=== PATIENT | female | born 1975 | race Caucasian/White ===

== ENCOUNTER 2020-01-02 11:31 | Emergency (ER) | payer OTHER, SELFPAY ==
[2020-01-02 11:35] VITALS: BP 121/89; PULSE 95; RESP 18; TEMP 36.6; O2SAT 98
[2020-01-02 11:53] VITALS: O2SAT 97
[2020-01-02 12:00] VITALS: O2SAT 100
[2020-01-02 12:01] VITALS: BP 115/84; O2SAT 100
--- NOTE | 2020-01-02 12:08 | ED.GENADULT ---
HPI - General Adult General Chief complaint: Wound/Laceration Stated complaint: laceration on right foot Time Seen by Provider: 01/02/20 11:49 Source: patient Mode of arrival: ambulatory Limitations: no limitations History of Present Illness HPI narrative: 44-year-old female patient presents to the [facility] with complaints of a laceration to her right foot. Patient states that she was cutting some tomatoes today and states that she excellently dropped her knife and it cut her foot. Denies any history of diabetes, neuropathy or being on blood thinners. Patient states that her last tetanus shot was about 7 years ago. Patient states she was having a little trouble trying to get the bleeding to stop. Patient denies any numbness or tingling to the feet. Denies any trouble moving the foot or toes. Related Data Home Medications Medication Instructions Recorded Confirmed clobetasol 1 applic TOPICAL BID 08/05/19 08/05/19 cholecalciferol (vitamin D3) 125 125 mcg PO DAILY 12/09/19 mcg (5,000 unit) capsule ustekinumab 130 mg/26 mL 260 mg IVPB ONCE 12/09/19 12/09/19 intravenous solution Allergies Allergy/AdvReac Type Severity Reaction Status Date / Time meperidine Allergy Unknown Rash Verified 01/02/20 11:35 Review of Systems Review of Systems: Narrative: CONSTITUTIONAL: Denies fever, chills, or sweats. EYES: Denies visual changes, redness, or discharge. ENT: Denies rhinorrhea, congestion, sore throat, or otalgia. CARDIOVASCULAR: Denies chest pain, palpitations, or edema. RESPIRATORY: Denies cough or dyspnea. GASTROINTESTINAL: Denies abdominal pain, nausea, vomiting, or diarrhea. GENITOURINARY: Denies dysuria or hematuria. SKIN: Denies rash or itching. Positive laceration to right foot MUSCULOSKELETAL: Denies back pain, joint pain, or myalgia. NEUROLOGIC: Denies headache, numbness, or weakness. PSYCHIATRIC: Denies anxiety or depression. [facility] Family History Family History Father Family history of chronic obstructive pulmonary disease Family history of Alzheimer's disease Family history of dementia Mother Uterine cancer Sibling High blood cholesterol Grandparent Cerebrovascular accident Grandparent Cerebrovascular accident Grandparent Lung cancer Social History Social History Smoking status: Former smoker Smoking end date: 07/24/07 Alcohol intake: current Substance use: current Substance use type: marijuana and prescription drug Other substance usage details: Medical Marijuana Gender identity (if verbalized by the patient): Female Comments At the time of my signature I agree with nursing past medical history, surgical, social, and family history. There is no relevant family history pertinent to the presenting complaint. Exam Narrative: Exam Narrative: GENERAL: Well-appearing, well-nourished, and in no acute distress. HEAD: Normocephalic, atraumatic. EYES: PERRLA and EOMI. ENT: Nares clear, no rhinorrhea or epistaxis. Mucous membranes moist. NECK: Supple. No lymphadenopathy CHEST: Clear to auscultation. No respiratory distress. HEART: Regular rate and rhythm. No murmur heard. Normal peripheral pulses. ABDOMEN: Soft, nontender, nondistended, normal active bowel sounds. EXTREMITIES: Normal range of motion. No edema. SKIN: Warm, dry, no rash. Patient has approximately 2.5 cm linear laceration to the top of the right foot. Bleeding is controlled at this time. There is no gaping of the wound and the wound does appear to be pretty superficial. There does not appear to be any underlying injury at this time. Patient has excellent motion of toes and has equal strength to feet. Pedal pulses intact at 2+. NEURO: No focal deficits. Alert and oriented x3. Course Vital Signs Vital signs: Vital Signs Temperature 36.6 C 01/02/20 11:35 P
[2020-01-02 12:16] VITALS: BP 115/79; O2SAT 96
[2020-01-02] MEDS: ACETAMINOPHEN 325 MG TABLET 650 MG PO (12:16)
[2020-01-02 12:17] VITALS: O2SAT 97
[2020-01-02] MEDS: TETANUS,DIPHTHERIA,AC PERTUSSIS ADULT (0.5 ML) BOOSTRIX IM (12:18)
== END 2020-01-02 12:46 | disposition home or self-care (01) ==
PROVIDERS: Emergency Provider Nurse Practitioner Family; PCP Family Medicine
DX: S91.311A Laceration without foreign body, right foot, initial encounter (principal); Z87.891 Personal history of nicotine dependence; W26.0XXA Contact with knife, initial encounter; Y93.G1 Activity, food preparation and clean up; Z23 Encounter for immunization
CPT/HCPCS: 12001; 90471; 90715; 99282; A9270

== ENCOUNTER 2020-01-28 08:57 | Outpatient (CLI) | payer OTHER, SELFPAY | END 2020-01-28 08:58 | disposition home or self-care (01) | PROVIDERS: PCP Family Medicine; Visit Provider Obstetrics & Gynecology | DX: Z01.818 Encounter for other preprocedural examination (principal); R10.2 Pelvic and perineal pain | CPT/HCPCS: 36415; 86850; 86900; 86901 ==

== ENCOUNTER 2020-02-01 01:17 | Outpatient (CLI) | payer OTHER, SELFPAY ==
[2020-02-01 18:09] LABS: SARS-CoV-2 RNA PCR Negative
== END 2020-02-01 01:18 | disposition home or self-care (01) ==
LOC: ANHCOVIDDT 01:17
PROVIDERS: PCP Family Medicine; Visit Provider Obstetrics & Gynecology
DX: Z01.812 Encounter for preprocedural laboratory examination (principal); Z11.59 Encounter for screening for other viral diseases
CPT/HCPCS: 87635; C9803; U0003

== ENCOUNTER 2020-02-04 02:39 | Day surgery (SDC) | payer OTHER, SELFPAY ==
[2020-01-27 14:18] VITALS: BMI 25.8
[2020-02-04] VITALS (14 sets, daily range): BP systolic 91–120; BP diastolic 57–83; PULSE 59–90; RESP 10–18; TEMP 36.1–36.8; O2SAT 96–100
--- NOTE | ~2020-02-04 | CT_ITS ---
EXAMINATION: CT abdomen pelvis wo con DATE: 02/05/2020 09:16 INDICATION: Lower abdominal pain post recent hysterectomy TECHNIQUE: Computed tomography (CT) of the abdomen and pelvis was performed without intravenous contr ast. Automated exposure control and iterative reconstruction technique were employed. The dose-length product was 535.04 mGy-cm. COMPARISON: None FINDINGS: There are a few 4 mm or smaller nodules at the bilateral lower lobes. Mild discoid atelectasis in the bilateral lower lobes. Heart size is normal. No pericardial or pleural effusion. The uterus is not v isualized and there is a small amount of pneumoperitoneum as well as more prominent scattered subcuta neous gas along the anterior abdominal wall likely related to recent laparoscopic hysterectomy. There is an approximately 12.4 x 8.8 x 7.8 cm mixed attenuation fluid collection in the deep pelvis consis tent with hemoperitoneum with regions of more dense clot. Small amount of lower attenuation perihepat ic ascites. Bladder is normal. Liver, gallbladder, spleen, pancreas, bilateral adrenal glands and kid neys are normal. There are 3 small splenule along the caudal margin of the spleen. Mild scattered col onic diverticulosis without adjacent inflammatory change to suggest diverticulitis. No bowel obstruct ion. No pathologically enlarged abdominal or pelvic lymphadenopathy. Multiple small Schmorl's nodes a long several vertebral bodies in the lumbar and lower thoracic spine. IMPRESSION: 1. Postoperative changes of recent laparoscopic hysterectomy with approximately 12.4 x 8.8 x 7.8 cm c ollection of hemoperitoneum in the deep pelvis. Reviewed, dictated and finalized at location A. IMPRESSION: 1. Postoperative changes of recent laparoscopic hysterectomy with approximately 12.4 x 8.8 x 7.8 cm collection of hemoperitoneum in the deep pelvis.
--- NOTE | 2020-02-04 00:53 | PM.IMHP ---
H&P: HPI History of Present Illness Chief complaint: pain, enlarged uterus Narrative: 44 y/o with a fibroid uterus, pelvic pain, and a right adnexal mass suggestive of hydrosalpinx. She has had a tubal ligation. She is requesting hysterectomy. Review of Systems Review of Systems: All systems reviewed & are unremarkable except as noted in HPI and below PMFSH Past Medical History Medical History (Updated 02/04/20 @ 01:02 by Fortino Stokes MD) Common migraine Crohn's disease of small intestine without complication Eczema History of basal cell carcinoma of skin Uterine fibroid Family History Family History Father Family history of chronic obstructive pulmonary disease Family history of Alzheimer's disease Family history of dementia Mother Uterine cancer Sibling High blood cholesterol Grandparent Cerebrovascular accident Grandparent Cerebrovascular accident Grandparent Lung cancer Social History Social History Smoking packs per day: 1 Smoking cigarettes per day: 20.0 Years smoked: 10 Smoking pack-years: 10.00 Smoking status: Former smoker Smoking end date: 07/24/07 Additional smoking assessment comments: QUIT 10 YEARS AGO Alcohol intake: current Drinks per week: 4 Substance use: current Substance use type: marijuana Other substance usage details: Medical Marijuana Last use: FEW WEEKS AGO Gender identity (if verbalized by the patient): Female Spiritual care concerns: No Meds Home Medications and Allergies Home Medications Medication Instructions Recorded Confirmed Type clobetasol 1 applic TOPICAL BID PRN 08/05/19 02/04/20 History cholecalciferol (vitamin D3) 125 125 mcg PO DAILY 12/09/19 02/04/20 History mcg (5,000 unit) capsule ustekinumab 130 mg/26 mL 260 mg IVPB USEASDIRECTD 12/09/19 02/04/20 History intravenous solution alprazolam 0.25 mg tablet 0.25 mg PO TID PRN #90 tablet 01/27/20 02/04/20 Rx cetirizine 10 mg PO DAILY PRN 01/27/20 02/04/20 History chlordiazepoxide HCl 10 mg PO Q12H 01/27/20 02/04/20 History triamcinolone acetonide 1 applic TOPICAL DIRECTED PRN 01/27/20 02/04/20 History amitriptyline 25 mg tablet 75 mg PO .COMPLEX #270 tablet 01/31/20 02/04/20 Rx Allergies Allergy/AdvReac Type Severity Reaction Status Date / Time meperidine Allergy Unknown Rash, Verified 02/04/20 12:23 VOMITING, SYNCOPE Exam Const: Orientation/consciousness: patient oriented x3 Other: Well-developed, well-nourished female in no acute distress. Neck: Thyroid: thyroid normal Lymphatic: no lymphadenopathy noted (in neck, axilla or inguinal nodes) Resp: Effort & Inspection: normal respiratory effort Auscultation: clear to auscultation bilaterally Cardio: Rate: regular rate Rhythm: regular rhythm Heart sounds: S1 normal heart sound present and S2 normal heart sound present GI: Other: ABD: Soft, nontender, nondistended. No guarding or rebound tenderness. No hepatosplenomegaly. : General: Yes no CVA tenderness Other: External genitalia: normal female hair distribution, without lesion. Urethral meatus: no lesion, non prolapsed. Bladder: no mass, nontender Vagina: well-estrogenized, without lesion or discharge. No cystocele or rectocele. Cervix: no lesion or discharge. Uterus: small, anteverted, freely mobile, nontender Adnexa: no mass palpable. But there is tenderness to deep palpation bilaterally. Anus/perineum: no lesions, nontender Back/Spine/Pelvis: Back: no CVA tenderness Skin: General skin exam: normal color and no rashes or lesions noted Neuro: General: patient oriented x3 Extrem: Other: Extremities: nontender with no edema Psych: Mental Status: mental status grossly normal Affect: normal affect Assessment and Plan Assessment and plan (1) Uterine fibroid:
--- NOTE | 2020-02-04 11:30 | WPDANESEPPF ---
Anes - Initial Pre Proc Eval Procedure: Operation Date: 02/04/20 13:00 Proposed Procedures p Robotic Assisted Total Vaginal Hysterectomy, Bilateral Salpingo-oophorectomy - Fortino Stokes MD Date/Time: 02/04/20 11:30 Surgeon: Fortino Stokes MD Pre Op Diagnosis: pain, enlarged uterus Patient Data Age: 44 Gender: F Height: 5 ft 8 in Weight: 77.11 kg Allergies Allergy/AdvReac Type Severity Reaction Status Date / Time meperidine Allergy Unknown Rash, Verified 01/31/20 09:53 VOMITING, SYNCOPE Home Medications Medication Instructions Recorded Confirmed Type clobetasol 1 applic TOPICAL BID PRN 08/05/19 01/27/20 History cholecalciferol (vitamin D3) 125 125 mcg PO DAILY 12/09/19 01/27/20 History mcg (5,000 unit) capsule ustekinumab 130 mg/26 mL 260 mg IVPB USEASDIRECTD 12/09/19 01/27/20 History intravenous solution alprazolam 0.25 mg tablet 0.25 mg PO TID PRN #90 tablet 01/27/20 01/27/20 Rx cetirizine 10 mg PO DAILY PRN 01/27/20 01/27/20 History chlordiazepoxide HCl 10 mg PO Q12H 01/27/20 01/27/20 History triamcinolone acetonide 1 applic TOPICAL DIRECTED PRN 01/27/20 01/27/20 History amitriptyline 25 mg tablet 75 mg PO .COMPLEX #270 tablet 01/31/20 01/31/20 Rx Patient hx anesthesia problems: none Family hx anesthesia problems: none PMFSH Past Medical History Medical History (Updated 02/04/20 @ 01:02 by Fortino Stokes MD) Common migraine Crohn's disease of small intestine without complication Eczema History of basal cell carcinoma of skin Uterine fibroid Family History Family History Father Family history of chronic obstructive pulmonary disease Family history of Alzheimer's disease Family history of dementia Mother Uterine cancer Sibling High blood cholesterol Grandparent Cerebrovascular accident Grandparent Cerebrovascular accident Grandparent Lung cancer Social History Social History Smoking packs per day: 1 Smoking cigarettes per day: 20.0 Years smoked: 10 Smoking pack-years: 10.00 Smoking status: Former smoker Smoking end date: 07/24/07 Additional smoking assessment comments: QUIT 10 YEARS AGO Alcohol intake: current Drinks per week: 4 Substance use: current Substance use type: marijuana Other substance usage details: Medical Marijuana Last use: FEW WEEKS AGO Gender identity (if verbalized by the patient): Female Spiritual care concerns: No Anes - Eval Final PreProcedure Day of Procedure 02/04/20 11:30 Patient weight: normal Heart: regular rate and rhythm Lungs: clear to auscultation Airway: Mallampati scale class II Neurological: alert and oriented Last oral intake: >/= 8 hours ASA classification: II Emergent: no Anesthetic plan: proceed Anesthesia type and monitoring: general ETT and standard monitoring Informed Consent: The patient's anesthetic plan and its attendant risks and benefits were discussed with the patient/family/POA. Questions were solicited and answers provided to the satisfaction of the patient/family/POA.
[2020-02-04] MEDS: LACTATED RINGERS 1,000 ML 30 ML IV CONT ×2 (12:00→15:25)
[2020-02-04] MEDS: ACETAMINOPHEN 500 MG TABLET 1000 MG PO (12:28)
[2020-02-04] MEDS: KETOROLAC 15 MG/ML VIAL (*BKC) IV PUSH (12:28)
--- NOTE | 2020-02-04 12:32 | WPDHPUPDATE1 ---
History and Physical Update Update Date/Time: 02/04/20 12:32 History and Physical has been reviewed, including an updated exam of the patient. There are NO changes in the patient's condition. Risks, benefits, and alternatives have been discussed and questions answered. Patient agrees to proceed with procedure.
--- NOTE | 2020-02-04 15:05 | SUR.OPER ---
Ebl=50ml
--- NOTE | 2020-02-04 16:30 | SUR.PHASEI ---
1630 SBAR FAXED FLOOR NOTIIFED
--- NOTE | 2020-02-04 17:10 | PM.PROC ---
Procedure Note - Detailed Date of procedure: 02/04/20 Pre-op diagnosis: pain, enlarged uterus Pelvic pain Hydrosalpinx Fibroid uterus Post-op diagnosis: same Procedure performed: Robotic assisted TVH with bilateral salpingooophorectomy Description of procedure: The patient was taken to the operating room where general endotracheal anesthesia was administered. She was prepared and draped in the usual sterile fashion in the dorsal lithotomy position. A Adrian catheter was placed. The weighted sterile speculum was placed in the vagina. The anterior lip of the cervix was grasped with a single-tooth tenaculum. The cervix was gently dilated. The CARRILLO 2 uterine manipulator was placed. The tenaculum was removed. Gloves were changed and attention was turned to the abdomen. A supraumbilical skin incision was made with the scalpel. The abdomen was tented and the Veress needle was advanced. Pneumoperitoneum was administered using carbon dioxide gas. The Veress needle was withdrawn and the bladeless trocar was advanced. Intraperitoneal placement was confirmed visually using the laparoscope. Lateral ports were placed using bladeless trocars under direct laparoscopic visualization. Finally, an music assistant port was placed to the right of the camera port, again under direct laparoscopic visualization. The patient was placed in Trendelenburg position and the patient cart was docked. I assumed the console. The ureters were identified bilaterally. The round ligament on the right was divided. The infundibulopelvic ligament was divided. The anterior and posterior leaves of the broad ligament were divided. The uterine artery was ligated on the right side. Attention was then turned to the left side, which was similarly dissected. The bladder was able to be fully reflected away. Colpotomy was performed circumferentially. The specimen was withdrawn and passed off to be sent to pathology. The vaginal cuff was then reapproximated using 0 Vicryl in interrupted [id number] fashion. The pelvis was irrigated copiously with warmed normal saline. Hemaderm was applied to the vaginal cuff. The pedicles were inspected and found to be hemostatic. The ports were withdrawn. The skin incisions were reapproximated using 4-0 Vicryl in interrupted subcuticular fashion. Dermaflex was applied externally. Sponge, lap, needle and instrument counts were correct. The patient was awakened and taken to the recovery room in stable condition. I was present and scrubbed through the entire procedure. Implants: None Anesthesia: GETA Surgeon: Fortino Stokes MD Estimated blood loss (mL): 50 Drains: No Packing: No Pathology: yes (Uterus, cervix, bilateral Fallopian tubes and ovaries) Complications: None Condition: stable Disposition: PACU Findings: Adhesions were noted between the omentum and the anterior abdominal wall. Adhesions were also noted at the bladder flap. Both Fallopian tubes demonstrated some dilation, as well as evidence of prior tubal ligation. Both ovaries were unremarkable.
--- NOTE | 2020-02-04 17:15 | PM.DS ---
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 F, increased abdominal pain, increased vaginal bleeding or any new problems. Stand Alone Forms: General Discharge Instructions Follow-up/Referrals: Fortino Stokes MD [Physician] - (2 weeks) Discharge Medications: No Action clobetasol 0.05 % Cream 1 applic TOPICAL BID PRN (Reason: Rash) RF: 0 cholecalciferol (vitamin D3) 125 mcg (5,000 unit) capsule 125 mcg PO DAILY RF: 0 Stelara 130 mg/26 mL solution 260 mg IVPB USEASDIRECTD RF: 0 amitriptyline 25 mg tablet 75 mg PO .COMPLEX Qty: 270 RF: 1 triamcinolone acetonide 0.1 % Cream 1 applic TOPICAL DIRECTED PRN (Reason: Rash) RF: 0 chlordiazepoxide HCl 5 mg capsule 10 mg PO Q12H RF: 0 cetirizine 10 mg capsule 10 mg PO DAILY PRN (Reason: Rash) RF: 0 alprazolam 0.25 mg tablet 0.25 mg PO TID PRN (Reason: anxiety) Qty: 90 RF: 1 Primary Care Provider: Heriberto Gomez Attending physician on admission: Fortino Stokes
[2020-02-04] MEDS: DEXTROSE 5%/0.45% SOD CHL 1,000 ML 125 ML IV CONT (17:21)
[2020-02-04] MEDS: MORPHINE SULFATE 4 MG/ML INJ IV PUSH ×2 (17:22→21:33)
--- NOTE | 2020-02-04 18:37 | PC.NURSE ---
This patient, Carline Juáerz, was received from PACU on 02/04/20 at 1652. Patient/family oriented to unit policies and routines
[2020-02-04] MEDS: ENOXAPARIN 40 MG/0.4 ML SYRINGE SUB-Q (19:50)
[2020-02-04] MEDS: ESTRADIOL 7 DAY 0.05 MG PATCH TRANSDERM (19:50)
[2020-02-04] MEDS: AMITRIPTYLINE HCL 25 MG TABLET 50 MG PO (19:51)
[2020-02-05] VITALS (15 sets, daily range): BP systolic 88–116; BP diastolic 21–79; PULSE 64–97; RESP 16–18; TEMP 36.2–37.2; O2SAT 96–100
[2020-02-05] MEDS: DEXTROSE 5%/0.45% SOD CHL 1,000 ML 125 ML IV CONT ×2 (01:36→09:47)
[2020-02-05 06:19] LABS: Basophils Percent Auto 0.3 % (0.2-1.2); Eosinophils Absolute Auto 0.1 K/mm3 (0-0.3); Hemoglobin 11.2 g/dL (12.0-15.0); Immature Granulocyte Absolute 0.02 K/mm3 (0.00-0.031); Immature Granulocyte Percent A 0.3 % (0-0.5); Lymphocytes Absolute Auto 1.13 K/mm3 (0.9-3.2); Lymphocytes Percent Auto 18.8 % (18.3-44.2); Mean Corpuscular HGB Conc 32.9 g/dl (32-36); Mean Corpuscular Hemoglobin 31.4 pg (26-34); Mean Corpuscular Volume 95.2 fl (80-100); Mean Platelet Volume 9.1 fl (7.4-10.4); Monocytes Absolute Auto 0.4 K/mm3 (0.1-0.6); Monocytes Percent Auto 6.5 % (2.6-8.5); Neutrophils Absolute Auto 4.4 K/mm3 (1.3-6.7); Neutrophils Percent Auto 73.1 % (45.5-73.1); Platelet Count Result 190 k/mm3 (150-375); Red Blood Count 3.57 M/mm3 (4.2-5.4); Red Cell Distribution Width 12.9 % (11.5-14.5)
--- NOTE | 2020-02-05 07:27 | P.PNAN_ITS ---
Anes - Prog Note Post-Op Date/Time: 02/05/20 07:27 Cardiovascular status: normal Respiratory status: normal Airway patency: baseline Mental status: baseline Post-Op hydration status: normal Vital Signs: Last Vital Signs Temp 36.2 C L 02/05/20 00:00 Pulse 73 02/05/20 00:00 Resp 16 02/05/20 00:00 BP 102/64 02/05/20 00:00 Pulse Ox 96 02/05/20 00:00 I/O: Intake & Output 02/04/20 02/04/20 02/05/20 15:59 23:59 07:59 Intake Total 0 1500 Output Total 60 Balance 0 -60 1500 Laboratory Tests 02/05/20 05:45 02/05/20 05:45 WBC 6.0 RBC 3.57 L Hgb 11.2 L Hct 34.0 L MCV 95.2 MCH 31.4 MCHC 32.9 RDW 12.9 Plt Count 190 MPV 9.1 Immature Gran % (Auto) 0.3 Neut % (Auto) 73.1 Lymph % (Auto) 18.8 Stewart % (Auto) 6.5 Eos % (Auto) 1.0 Baso % (Auto) 0.3 Lymph # (Auto) 1.13 Stewart # (Auto) 0.4 Eos # (Auto) 0.1 Baso # (Auto) 0.0 Abs Immat Gran (auto) 0.02 Absolute Neuts (auto) 4.4 Absolute Nucleated RBC 0.0 Nucleated RBC % 0.0 Post-procedural complaints: none Patient Feedback: Patient satisfied with anesthetic care.
[2020-02-05 08:16] LABS: Glucose Point of Care 146 (65-105)
--- NOTE | 2020-02-05 08:35 | PC.NURSE ---
Pt. became lightedheaded when up to chair. Assistance called for and patient fainted. Pt. began to respond to sternal rub and ammonia. Pt. pale and needed continual stimuli to remain responsive. Vitals 94/67. pulse 94. O2 100% which is consistant with previous vital signs. O2 applied and patient returned to bed. Glucose 146. Dr. Stokes notified.
[2020-02-05] MEDS: MORPHINE SULFATE 4 MG/ML INJ IV PUSH ×2 (10:01→14:12)
[2020-02-05] MEDS: SIMETHICONE 80 MG TAB.CHEW PO ×2 (10:03→16:15)
[2020-02-05 11:03] LABS: Mean Corpuscular HGB Conc 33.3 g/dl (32-36); Mean Corpuscular Hemoglobin 31.6 pg (26-34); Mean Corpuscular Volume 94.8 fl (80-100); Mean Platelet Volume 9.2 fl (7.4-10.4); Platelet Count Result 181 k/mm3 (150-375); Red Blood Count 3.48 M/mm3 (4.2-5.4); Red Cell Distribution Width 13.2 % (11.5-14.5); White Blood Count 7.8 K/mm3 (4.5-10.0)
--- NOTE | 2020-02-05 11:09 | PC.NURSE ---
Pt. off unit for CT.
--- NOTE | 2020-02-05 15:33 | PM.GYNPNOP ---
JUNIOR SOFTWARE ENGINEER - A/P Assessment and plan (1) Pelvic pain: Code(s): R10.2 - Pelvic and perineal pain Status: Acute Assessment and Plan: S/p robotic assisted TVHBSO, now clinically doing well. Syncopal episode today, but now resolved. Vital signs normal and stable, and exam is benign. Plan home to f/u 2 weeks. Instructions / precautions reviewed in detail. (2) Uterine fibroid: Code(s): D25.9 - Leiomyoma of uterus, unspecified Status: Acute (3) Hydrosalpinx: Code(s): N70.11 - Chronic salpingitis Status: Acute Postoperative Procedures: Procedures Operation Date: 02/04/20 13:00 Actual Procedures Side Surgeon p Robotic Assisted Total Vaginal Hysterectomy, Bilateral Salpingo-oophorectomy Fortino Stokes MD Time Spent With Patient Time with patient: 15 - 25 minutes JUNIOR SOFTWARE ENGINEER- PN:Subj Post-Op Subjective Date/time seen: 02/05/20 15:33 Interval history: Overnight her pain was just fine. Adrian had 1600mL when it was removed at 0700. She was sitting in her chair when she got some low abdominal pain, then had a syncopal episode. Was revived. Did not fall, was just sitting in the chair. I was called and saw her about 0845. She was lucid, denied any loss of bowel/bladder, denied any postictal symtpoms. Said she just had some low pelvic cramping. BP stable at 90s/60s, with pulse in 70s. Abdomen was soft and incisions c/d/i. No vaginal bleeding. Was sent for CT, which showed a [id number] collection of likely blood in the pelvis. A STAT hgb showed no change at 11. I asked her to stay until this afternoon. She currently feels fine, though crampy in the lower abdomen. Voided. No more syncopal or presyncopal episodes. Would like to try something else for pain and hopefully go home later today. Exam Narrative: Exam Narrative: AVSS I/O OK ABD soft, nontender. Incisions c/d/i. EXT nontender JUNIOR SOFTWARE ENGINEER - PN: Obj Data Vital Signs Vital Signs: Vital Signs - 24 hr 02/04/20 15:45 02/04/20 16:00 02/04/20 16:15 Temperature Pulse Rate 85 72 72 Respiratory Rate 12 10 L 14 Blood Pressure 111/72 98/57 L 104/65 Pulse Oximetry 100 100 98 02/04/20 16:30 02/04/20 16:47 02/04/20 17:00 Temperature 36.4 C Pulse Rate 59 L 76 75 Respiratory Rate 12 16 18 Blood Pressure 106/69 99/67 L 91/58 L Pulse Oximetry 99 96 100 02/04/20 17:15 02/04/20 17:30 02/04/20 17:45 Temperature Pulse Rate 79 87 76 Respiratory Rate 18 16 18 Blood Pressure 105/67 102/68 109/74 Pulse Oximetry 100 99 96 02/04/20 18:00 02/04/20 18:30 02/04/20 20:25 Temperature 36.1 C L Pulse Rate 68 90 Respiratory Rate 18 18 16 Blood Pressure 100/64 97/66 L 110/74 Pulse Oximetry 99 97 99 02/05/20 00:00 02/05/20 08:00 02/05/20 08:05 Temperature 36.2 C L 36.9 C Pulse Rate 73 97 94 Respiratory Rate 16 16 Blood Pressure 102/64 92/62 L 94/67 L Pulse Oximetry 96 98 100 02/05/20 08:12 02/05/20 08:15 02/05/20 08:20 Temperature Pulse Rate 88 77 79 Respiratory Rate Blood Pressure 88/58 L 89/41 L 97/67 L Pulse Oximetry 100 100 100 02/05/20 08:25 02/05/20 08:30 02/05/20 08:35 Temperature Pulse Rate 77 70 65 Respiratory Rate Blood Pressure 116/64 97/21 L 99/63 L Pulse Oximetry 100 100 100 02/05/20 08:40 02/05/20 08:45 02/05/20 08:50 Temperature Pulse Rate 65 64 65 Respiratory Rate Blood Pressure 93/62 L 96/64 L 104/75 Pulse Oximetry 100 100 100 02/05/20 09:45 02/05/20 12:00 Temperature 37.2 C Pulse Rate 73 89 Respiratory Rate 18 Blood Pressure 99/60 L 101/68 Pulse Oximetry 100 100 Intake/Output Intake/Output: Intake & Output 02/02/20 02/03/20 02/04/20 02/05/20 23:59 23:59 23:59 23:59 Intake Total 0 2500 Output Total 60 2400 Balance -60 100 Meds/Results Medications: Active Medications Generic Name Dose Route Start Last Admin Trade Name Freq PRN Reason Stop Dose Admin Hydrocodone Bitart/Acetaminophen 1 tab 02/04/20 15:05 [place] 5-325 Mg
[2020-02-05] MEDS: IBUPROFEN 600 MG TABLET PO (16:10)
== END 2020-02-05 16:45 | disposition home or self-care (01) ==
LOC: ANHSURGERY 10:52 → ANHOB2 16:52
PROVIDERS: PCP Family Medicine; Visit Provider Obstetrics & Gynecology
PROC: (CPT 58552; principal; 2020-02-04 13:00)
DX: R10.2 Pelvic and perineal pain (principal); N70.11 Chronic salpingitis; N83.02 Follicular cyst of left ovary; N83.01 Follicular cyst of right ovary; N73.6 Female pelvic peritoneal adhesions (postinfective); K50.00 Crohn's disease of small intestine without complications; L30.9 Dermatitis, unspecified; Z87.891 Personal history of nicotine dependence; F12.90 Cannabis use, unspecified, uncomplicated
CPT/HCPCS: 58552; S2900; 36415; 74176; 85025; 85027; 87635; 88307; 99199; A9270; C9803; J0131; J1100; J1170; J1650; J1885; J2250; J2270; J2405; J2704; J3010; J7030; J7120; U0003

== ENCOUNTER → 2020-05-29 15:15 | Outpatient (CLI) | payer OTHER, SELFPAY ==
--- NOTE | ~2020-05-29 | MM_ITS ---
EXAMINATION: MM screening [facility] BI w pb HISTORY: Screening mammogram TECHNIQUE: Craniocaudal and mediolateral oblique 3-D tomosynthesis images were obtained and synthetic 2-D images were generated. CAD analysis was submitted and interpreted. COMPARISON: 05/27/2019, 05/22/2018, 05/19/2017 BREAST PARENCHYMAL COMPOSITION: There are scattered areas of fibroglandular density. FINDINGS: There is a stable intramammary lymph node in the upper outer quadrant of the right breast. There is no evidence of suspicious mass, calcification, or architectural distortion to suggest malign artie in either breast. There has been no suspicious interval change. IMPRESSION: 1. No mammographic evidence of malignancy. 2. Recommend routine screening mammography in one year. BI-RADS Category 2: Benign finding(s). Reviewed, dictated and finalized at location A. [employer]
== END ==
PROVIDERS: PCP Family Medicine; Visit Provider Obstetrics & Gynecology
DX: Z12.31 Encounter for screening mammogram for malignant neoplasm of breast (principal)
CPT/HCPCS: 77063; 77067

== ENCOUNTER 2021-04-19 00:52 | Emergency (ER) | payer OTHER, SELFPAY ==
--- NOTE | ~2021-04-19 | CT_ITS ---
EXAMINATION: CTA chest PE protocol DATE: 04/19/2021 02:14 INDICATION: Shortness of breath TECHNIQUE: Computed tomography angiography (CTA) of the chest was performed with 100 mL Omnipaque-350 intravenous contrast timed to evaluate the pulmonary arteries. Coronal maximum intensity projection 3D-reconstructions were created by the technologist. Automated exposure control and iterative reconst ruction technique were employed. Exam dose: 454.24 mGy-cm total exam DLP. COMPARISON: 04/19/2021 PA and lateral chest FINDINGS: Bilateral foramen of [place] fat-containing hernias. There is diagnostic moderate contrast enhancement of the pulmonary arteries and no evidence of pulmon dima embolism. No thoracic aortic aneurysm or dissection. No hilar or mediastinal mass lesion or lymphadenopathy. Normal heart size. No pericardial or pleural effusion. The lungs are clear of infiltrate or consolidation. No pulmonary mass lesion is noted. Normal morphology of the adrenal glands. Included skeletal structures are unremarkable. IMPRESSION: No evidence of pulmonary embolism Reviewed, dictated and finalized at [facility]. Reviewed, dictated and finalized at location B.
--- NOTE | ~2021-04-19 | XR_ITS ---
EXAMINATION: XR chest 2V DATE: 04/19/2021 01:20 INDICATION: Sternal chest pain and shortness of breath TECHNIQUE: PA and lateral views of the chest were obtained. COMPARISON: Chest radiograph dated 07/31/2016 FINDINGS: The lungs remain clear with no focal airspace opacities, pulmonary edema, pleural effusion or pneumot horax. The cardiomediastinal silhouette is normal. Visualized bones and soft tissues are unremarkable . IMPRESSION: 1. No acute cardiopulmonary disease. Reviewed, dictated and finalized at location A.
--- NOTE | 2021-04-19 00:55 | ECG_ITS ---
Measurements Intervals [place] Rate: 106 P: 51 [place]: 150 QRS: 77 QRSD: 90 T: -62 QT: 290 QTc: 386 Interpretive Statements SINUS TACHYCARDIA VENTRICULAR PREMATURE COMPLEX MINIMAL Q WAVES- INFERIOR LEADS ST-T WAVE ABNORMALITY IN INF/LAT LEADS- CONSIDER ISCHEMIA BASELINE ARTIFACT- I, AVR ABNORMAL ECG Electronically Signed On 04-19-2021 6:53:52 CDT by Phil Cornelius D.O.
[2021-04-19 00:59] VITALS: BP 113/93; PULSE 133; RESP 18; TEMP 36.3; O2SAT 100
--- NOTE | 2021-04-19 01:23 | ED.GENADULT ---
HPI - General Adult General Chief complaint: Chest Pain Stated complaint: SOB, CP Time Seen by Provider: 04/19/21 01:14 History of Present Illness HPI narrative: Patient is a 46-year-old female who presents ER with chest pain worsening over the last week. Worse with deep breath. Feels like she cannot get her entire breath. She had seen her PCP and was given a Z-Gera without improvement. No fevers or chills or sweats. Denies sinus congestion sore throat or productive cough. No history of arrhythmia. She does report history of pulmonary embolism in the past. She is not on any anticoagulation. Related Data Home Medications Medication Instructions Recorded Confirmed clobetasol 1 applic TOPICAL BID PRN 08/05/19 11/06/20 cholecalciferol (vitamin D3) 125 125 mcg PO DAILY 12/09/19 11/06/20 mcg (5,000 unit) capsule ustekinumab 130 mg/26 mL 260 mg IVPB USEASDIRECTD 12/09/19 11/06/20 intravenous solution triamcinolone acetonide 1 applic TOPICAL DIRECTED PRN 01/27/20 11/06/20 Allergies Allergy/AdvReac Type Severity Reaction Status Date / Time meperidine Allergy Unknown Rash, Verified 11/06/20 11:32 VOMITING, SYNCOPE Review of Systems Review of Systems: All systems reviewed & are unremarkable except as noted in HPI and below Constitutional: Constitutional: Denies chills, Denies fever(s) and Denies weakness ENT: Denies nasal congestion and Denies sore throat Cardiovascular: Cardiovascular: Reports chest pain, Denies rapid heart rate and Denies radiating jaw, neck or arm pain Respiratory: Respiratory: Denies cough, Reports dyspnea and Denies wheezing Gastrointestinal: Gastrointestinal: Denies abdominal pain, Denies nausea and Denies vomiting Musculoskeletal: Musculoskeletal: Denies back pain and Denies muscle cramps [facility] Past Medical History Medical History (Updated 04/19/21 @ 04:41 by Bartolo Ferreira MD) Common migraine Crohn's disease of small intestine without complication Eczema History of basal cell carcinoma of skin Overweight (BMI 25.0-29.9) Pelvic pain Pulmonary embolism Uterine fibroid Surgical History Surgical History History of bilateral tubal ligation History of delivery History of endometrial ablation History of total vaginal hysterectomy (TVH) S/P total hysterectomy and BSO (bilateral salpingo-oophorectomy) Family History Family History Father Family history of chronic obstructive pulmonary disease Family history of Alzheimer's disease Family history of dementia Mother Uterine cancer Sibling High blood cholesterol Grandparent Cerebrovascular accident Grandparent Cerebrovascular accident Grandparent Lung cancer Social History Social History (Updated 11/06/20 @ 11:33 by Sintia Dominguez [facility]) Smoking packs per day: 1 Smoking cigarettes per day: 20.0 Years smoked: 10 Smoking pack-years: 10.00 Smoking end date: 07/24/07 Additional smoking assessment comments: QUIT 10 YEARS AGO Alcohol intake: current Drinks per week: 4 Substance use: current Substance use type: marijuana Other substance usage details: Medical Marijuana Last use: FEW WEEKS AGO Gender identity (if verbalized by the patient): Female Spiritual care concerns: No Exam Narrative: GENERAL: Well-appearing, well-nourished, and in no acute distress. HEAD: Normocephalic, atraumatic. ENT: Mucous membranes moist. CHEST: Clear to auscultation. No respiratory distress. HEART: Regular rate and rhythm. Normal peripheral pulses. ABDOMEN: Soft, nontender, nondistended. EXTREMITIES: Normal range of motion. No edema. SKIN: Warm, dry, no rash. NEURO: Alert and oriented x3. PSYCH: Normal mood and affect. Course Course Emergency Course: Informed results. Significant provement of discomfort with Toradol. Disc
[2021-04-19 01:26] LABS: Basophils Percent Auto 0.5 % (0.2-1.2); Eosinophils Absolute Auto 0.1 K/mm3 (0-0.3); Eosinophils Percent Auto 0.9 % (0-4.4); Hematocrit 41.2 % (37.0-47.0); Hemoglobin 14.2 g/dL (12.0-15.0); Immature Granulocyte Absolute 0.03 K/mm3 (0.00-0.031); Immature Granulocyte Percent A 0.4 % (0-0.5); Lymphocytes Absolute Auto 2.04 K/mm3 (0.9-3.2); Lymphocytes Percent Auto 24.8 % (18.3-44.2); Mean Corpuscular HGB Conc 34.5 g/dl (32-36); Mean Corpuscular Hemoglobin 34.3 pg (26-34); Mean Corpuscular Volume 99.5 fl (80-100); Mean Platelet Volume 8.4 fl (7.4-10.4); Monocytes Absolute Auto 0.5 K/mm3 (0.1-0.6); Monocytes Percent Auto 5.6 % (2.6-8.5); Neutrophils Absolute Auto 5.6 K/mm3 (1.3-6.7); Neutrophils Percent Auto 67.8 % (45.5-73.1); Platelet Count Result 261 k/mm3 (150-375); Red Blood Count 4.14 M/mm3 (4.2-5.4); Red Cell Distribution Width 11.9 % (11.5-14.5); White Blood Count 8.2 K/mm3 (4.5-10.0)
[2021-04-19 01:29] LABS: INR 0.8; Prothrombin Time 11.2 Seconds (11.1-14.7)
[2021-04-19 01:30] LABS: Partial Thromboplastin Time 21.3 SECONDS (22.3-36.8)
[2021-04-19 01:36] VITALS: BP 124/87; PULSE 108; RESP 18; O2SAT 99
[2021-04-19] MEDS: KETOROLAC 30 MG/ML VIAL (*BKC) IV PUSH (01:46)
[2021-04-19] MEDS: ASPIRIN 81 MG CHEWABLE TABLET 324 MG PO (01:46)
[2021-04-19 01:52] LABS: Anion Gap 11 mmol/L (8-16); Blood Urea Nitrogen 21 mg/dL (7-17); Calcium 9.9 mg/dL (8.4-10.2); Carbon Dioxide 26 mmol/L (22-30); Chloride 101 mmol/L (98-107); Estimated Glomerular Filt Rate > 60; Glucose 112 mg/dL (65-110); Potassium 3.8 mmol/L (3.4-5.0); Sodium 138 mmol/L (137-145)
[2021-04-19 02:03] LABS: Troponin I < 0.012 ng/mL (0.000-0.034)
[2021-04-19 03:30] VITALS: BP 102/67; PULSE 87; RESP 18; O2SAT 98
[2021-04-19 04:25] LABS: Troponin I < 0.012 ng/mL (0.000-0.034)
[2021-04-19 04:43] VITALS: BP 106/74; PULSE 77; RESP 18; O2SAT 99
== END 2021-04-19 04:58 | disposition home or self-care (01) ==
PROVIDERS: Emergency Provider Emergency Medicine; PCP Family Medicine
DX: R07.89 Other chest pain (principal); K50.90 Crohn's disease, unspecified, without complications; E66.3 Overweight; Z85.828 Personal history of other malignant neoplasm of skin; Z86.711 Personal history of pulmonary embolism; Z87.891 Personal history of nicotine dependence; R00.0 Tachycardia, unspecified; I49.3 Ventricular premature depolarization; R94.31 Abnormal electrocardiogram [ECG] [EKG]
CPT/HCPCS: 36415; 71046; 71275; 80048; 84484; 85025; 85610; 85730; 93005; 96374; 99284; A9270; J1885; Q9967

== ENCOUNTER 2021-06-06 12:23 | Emergency (ER) | payer OTHER, SELFPAY ==
[2021-06-06] VITALS (21 sets, daily range): BP systolic 109–144; BP diastolic 74–90; PULSE 71–101; RESP 11–24; TEMP 36.8; O2SAT 77–100
--- NOTE | ~2021-06-06 | CT_ITS ---
EXAMINATION: CTA chest PE protocol DATE: 06/06/2021 15:05 INDICATION: Shortness of breath. TECHNIQUE: Computed tomography angiography (CTA) of the chest was performed with 100 mL Omnipaque-350 intravenous contrast timed to evaluate the pulmonary arteries. Coronal maximum intensity projection 3D-reconstructions were created by the technologist. Automated exposure control and iterative reconst ruction technique were employed. The dose-length product was 346.67 mGy-cm. COMPARISON: Chest CT 04/19/2021 FINDINGS: The lungs demonstrate mild atelectasis. Again seen are a few scattered nodules measuring up to 5 mm, likely benign. No pleural effusion. The heart size is normal. No pericardial effusion. Ther e is no pulmonary embolus. There is mild thoracic spondylosis. IMPRESSION: 1. No pulmonary embolus. Reviewed, dictated and finalized at location A. MOLDER IMPRESSION: 1. No pulmonary embolus.
--- NOTE | 2021-06-06 13:36 | ECG_ITS ---
Measurements Intervals [place] Rate: 82 P: 63 [place]: 159 QRS: 72 QRSD: 87 T: 58 QT: 390 QTc: 456 Interpretive Statements SINUS RHYTHM BASELINE ARTIFACT- II, AVF NORMAL ECG Electronically Signed On 06-06-2021 14:47:28 ELEPHANT TAMER by Phil Cornelius D.O.
--- NOTE | 2021-06-06 13:41 | ED.SOB ---
HPI - SOB/Dyspnea General Chief Complaint: Shortness of Breath/Dyspnea Stated Complaint: dyspnea Time Seen by Provider: 06/06/21 13:24 Source: RN notes reviewed History of Present Illness HPI Narrative: Patient presents to emergency department from home for shortness of breath. Patient states that she has been having ongoing shortness of breath for the past 2 months she states that she feels short of breath at all times states the only time it feels better is when she is sleeping she states has been associated with a midsternal chest tightness that has been constantly present over the past 2 months. Patient states she is had no fevers or chills no cough no abdominal pain no nausea vomiting or any other symptoms states she is a former smoker but is no longer smoking she states that she was seen in the emergency department approximately a month ago for the symptoms and had blood work and a chest x-ray done that time were negative she to follow-up with her primary care physician who had planned to get a stress test ever on an outpatient but the stress test was denied by insurance and she has had no further work-up. The patient does state at times she feels near syncope because she feels so short of breath. Patient states she does have history of depression anxiety states she has been having increased stress in her life patient states she has had a history of a PE back in 2011 after Related Data Home Medications Medication Instructions Recorded Confirmed clobetasol 1 applic TOPICAL BID PRN 08/05/19 05/05/21 cholecalciferol (vitamin D3) 125 125 mcg PO DAILY 12/09/19 05/05/21 mcg (5,000 unit) capsule ustekinumab 130 mg/26 mL 260 mg IVPB USEASDIRECTD 12/09/19 05/05/21 intravenous solution triamcinolone acetonide 1 applic TOPICAL DIRECTED PRN 01/27/20 05/05/21 Allergies Allergy/AdvReac Type Severity Reaction Status Date / Time meperidine Allergy Unknown Rash, Verified 05/05/21 11:06 VOMITING, SYNCOPE Review of Systems Review of Systems: Gen.: Denies fevers or chills ENT: Denies congestion Respiratory: See HPI CV: Denies chest pain or palpitations GI: Denies abdominal pain nausea, emesis or diarrhea Musculoskeletal: Denies back pain or muscle pain Neuro: Denies numbness, tingling, weakness or focal weakness Skin: Denies rash Except as documented, all other systems reviewed and negative [facility] Past Medical History Medical History Common migraine Crohn's disease of small intestine without complication Eczema History of basal cell carcinoma of skin Overweight (BMI 25.0-29.9) Pelvic pain Pulmonary embolism Uterine fibroid Surgical History Surgical History History of bilateral tubal ligation History of delivery History of endometrial ablation History of total vaginal hysterectomy (TVH) S/P total hysterectomy and BSO (bilateral salpingo-oophorectomy) Family History Family History Father Family history of chronic obstructive pulmonary disease Family history of Alzheimer's disease Family history of dementia Mother Uterine cancer Sibling High blood cholesterol Grandparent Cerebrovascular accident Grandparent Cerebrovascular accident Grandparent Lung cancer Social History Social History Smoking packs per day: 1 Smoking cigarettes per day: 20.0 Years smoked: 10 Smoking pack-years: 10.00 Smoking status: Former smoker (2 months ) Smoking end date: 03/23/21 Additional smoking assessment comments: quit 2007, restarted and quit again 03/12/21 Alcohol intake: current Drinks per week: 4 Substance use: current Substance use type: marijuana Other substance usage details: Medical Marijuana Last use: FEW W
[2021-06-06 13:56] LABS: Basophils Percent Auto 0.5 % (0.2-1.2); Eosinophils Absolute Auto 0.1 K/mm3 (0-0.3); Eosinophils Percent Auto 0.7 % (0-4.4); Hematocrit 39.3 % (37.0-47.0); Hemoglobin 13.8 g/dL (12.0-15.0); Immature Granulocyte Absolute 0.02 K/mm3 (0.00-0.031); Immature Granulocyte Percent A 0.3 % (0-0.5); Lymphocytes Absolute Auto 1.52 K/mm3 (0.9-3.2); Lymphocytes Percent Auto 19.9 % (18.3-44.2); Mean Corpuscular HGB Conc 35.1 g/dl (32-36); Mean Corpuscular Hemoglobin 33.7 pg (26-34); Mean Corpuscular Volume 95.9 fl (80-100); Mean Platelet Volume 8.4 fl (7.4-10.4); Monocytes Absolute Auto 0.4 K/mm3 (0.1-0.6); Monocytes Percent Auto 5.4 % (2.6-8.5); Neutrophils Absolute Auto 5.6 K/mm3 (1.3-6.7); Neutrophils Percent Auto 73.2 % (45.5-73.1); Platelet Count Result 249 k/mm3 (150-375); White Blood Count 7.6 K/mm3 (4.5-10.0)
[2021-06-06 14:06] LABS: Alanine Aminotransferase 24 U/L (4-35); Albumin Level 5.3 g/dL (3.5-5.1); Alkaline Phosphatase 78 U/L (38-126); Anion Gap 15 mmol/L (8-16); Aspartate Amino Transferase 25 U/L (14-36); Bilirubin,Total 0.7 mg/dL (0.2-1.3); Blood Urea Nitrogen 14 mg/dL (7-17); Calcium 10.5 mg/dL (8.4-10.2); Carbon Dioxide 19 mmol/L (22-30); Chloride 104 mmol/L (98-107); Estimated CRCL calculation 91 ml/min; Estimated Glomerular Filt Rate > 60; Glucose 98 mg/dL (65-110); INR 0.8; Potassium 3.5 mmol/L (3.4-5.0); Prothrombin Time 11.5 Seconds (11.1-14.7); Sodium 138 mmol/L (137-145)
[2021-06-06 14:08] LABS: Partial Thromboplastin Time 22.7 SECONDS (22.3-36.8)
[2021-06-06 14:15] LABS: NT Pro B Type Natriuretic Pept 147 pg/mL (5-100)
[2021-06-06] MEDS: SODIUM CHLORIDE 0.9% IV 1,000 ML 999 ML IV CONT (14:17)
[2021-06-06] MEDS: LORazepam INJ (*CRX) 2 MG/ML VIAL 0.5 MG IV PUSH (14:17)
[2021-06-06 14:18] LABS: Troponin I < 0.012 ng/mL (0.000-0.034)
[2021-06-06 14:19] LABS: Add Urine Microscopic? YES; Appearance Urine Cloudy (Clear); Bacteria Urine 3+ /hpf; Bilirubin Urine Negative (Negative); Blood Urine Negative (Negative); Color Urine Yellow (Yellow); Glucose Urine UA Negative (Negative); Ketones Urine Negative (Negative); Leukocyte Esterase Ur Negative LEU/UL (Negative); Mucus Urine Rare /lpf; Nitrate Urine Negative (Negative); Protein Urine Negative (Negative); RBC Urine 0-2 /hpf (0-2); Specific Grav Ur 1.014 (1.001-1.035); Squamous Epithelial Cell Urine Moderate /hpf (Few); Urobilinogen Urine Negative mg/dL (<2.0); WBC Urine 0-3 /hpf
[2021-06-06 14:22] LABS: D Dimer 0.27 ug/mL (<0.48)
[2021-06-06 15:27] LABS: Urine Pregnancy Test Negative
[2021-06-06 15:28] LABS: Pregnancy On Board Control Positive
== END 2021-06-06 16:55 | disposition home or self-care (01) ==
PROVIDERS: Emergency Provider Emergency Medicine; PCP Family Medicine
DX: R06.00 Dyspnea, unspecified (principal); K50.90 Crohn's disease, unspecified, without complications; Z85.828 Personal history of other malignant neoplasm of skin; Z86.711 Personal history of pulmonary embolism; E66.3 Overweight; Z68.26 Body mass index [BMI] 26.0-26.9, adult; Z87.891 Personal history of nicotine dependence
CPT/HCPCS: 36415; 71275; 80053; 81001; 81025; 83880; 84484; 85025; 85380; 85610; 85730; 93005; 96361; 96374; 99284; J2060; J7030; Q9967

== ENCOUNTER → 2021-07-02 16:13 | Outpatient (CLI) | payer OTHER, SELFPAY ==
--- NOTE | ~2021-07-02 | MM_ITS ---
EXAMINATION: MM screening [facility] BI w pb HISTORY: Screening mammogram TECHNIQUE: Craniocaudal and mediolateral oblique 3-D tomosynthesis images were obtained and synthetic 2-D images were generated. CAD analysis was submitted and interpreted. COMPARISON: 05/29/2020, 05/27/2019 BREAST PARENCHYMAL COMPOSITION: There are scattered areas of fibroglandular density. FINDINGS: There is no evidence of suspicious mass, calcification, or architectural distortion to sugg est malignancy in either breast. There has been no suspicious interval change. IMPRESSION: 1. No mammographic evidence of malignancy. 2. Recommend routine screening mammography in one year. BI-RADS Category 1: Negative Reviewed, dictated and finalized at location A. LE PULLER
== END ==
PROVIDERS: Visit Provider Obstetrics & Gynecology
DX: Z12.31 Encounter for screening mammogram for malignant neoplasm of breast (principal)
CPT/HCPCS: 77063; 77067

== ENCOUNTER 2021-07-21 08:23 | Emergency (ER) | payer OTHER, SELFPAY ==
[2021-07-21 08:32] VITALS: BP 138/96; PULSE 100; RESP 16; TEMP 37.1; O2SAT 100
--- NOTE | 2021-07-21 09:23 | ED.DENTAL ---
HPI - Dental/Oral General Chief complaint: Dental/Oral Stated complaint: TOOTH PAIN Time Seen by Provider: 07/21/21 09:15 Source: patient and RN notes reviewed Mode of arrival: ambulatory Limitations: no limitations History of Present Illness HPI Narrative: Patient presents today complaining of left upper tooth pain. She had a tooth pulled a few months ago in preparation for a dental implant. She keeps having regrowth of bone spurs from her jaw, for already, preventing her from getting a bone graft, prior to implant. She has had to be on antibiotics a few times due to infection. Her dentist is now closed until next week and she is having severe pain due to another bone spur. She has been taking Tylenol without relief. She is unable to take NSAIDs due to Crohn's. Currently rates pain 12/31. MD Complaint: tooth pain Related Data Home Medications Medication Instructions Recorded Confirmed cholecalciferol (vitamin D3) 125 125 mcg PO DAILY 12/09/19 07/21/21 mcg (5,000 unit) capsule ustekinumab 130 mg/26 mL 260 mg IVPB USEASDIRECTD 12/09/19 07/21/21 intravenous solution baclofen 10 mg PO DAILY 07/21/21 07/21/21 ergocalciferol (vitamin D2) 1,250 mcg PO DAILY 07/21/21 07/21/21 estradiol 1 mg PO DAILY 07/21/21 07/21/21 hydroxyzine HCl 25 mg PO DAILY 07/21/21 07/21/21 Allergies Allergy/AdvReac Type Severity Reaction Status Date / Time meperidine Allergy Unknown Rash, Verified 07/21/21 08:51 VOMITING, SYNCOPE Review of Systems Review of Systems: CONSTITUTIONAL: Denies body aches, fever, chills, or sweats. EYES: Denies visual changes, redness, or discharge. ENT: Denies rhinorrhea, congestion, sore throat, or otalgia.+ Gum pain CARDIOVASCULAR: Denies chest pain, palpitations, or edema. RESPIRATORY: Denies cough or dyspnea. GASTROINTESTINAL: Denies abdominal pain, nausea, vomiting, or diarrhea. GENITOURINARY: Denies dysuria or hematuria. SKIN: Denies rash, itching, or wounds. MUSCULOSKELETAL: Denies back pain, joint pain, or myalgia. NEUROLOGIC: Denies headache, numbness, tingling, or weakness. PSYCH: Denies depression or anxiety. [facility] Past Medical History Medical History Common migraine Crohn's disease of small intestine without complication Eczema History of basal cell carcinoma of skin Overweight (BMI 25.0-29.9) Pelvic pain Pulmonary embolism Uterine fibroid Surgical History Surgical History History of bilateral tubal ligation History of delivery History of endometrial ablation History of total vaginal hysterectomy (TVH) S/P total hysterectomy and BSO (bilateral salpingo-oophorectomy) Family History Family History Father Family history of chronic obstructive pulmonary disease Family history of Alzheimer's disease Family history of dementia Mother Uterine cancer Sibling High blood cholesterol Grandparent Cerebrovascular accident Grandparent Cerebrovascular accident Grandparent Lung cancer Social History Social History Smoking packs per day: 1 Smoking cigarettes per day: 20.0 Years smoked: 10 Smoking pack-years: 10.00 Smoking end date: 03/23/21 Additional smoking assessment comments: quit 2007, restarted and quit again 03/12/21 Alcohol intake: current Drinks per week: 4 Substance use: current Substance use type: marijuana Other substance usage details: Medical Marijuana Last use: FEW WEEKS AGO Gender identity (if verbalized by the patient): Female Spiritual care concerns: No Comments At time of signature, I have reviewed and agree with nursing past medical, surgical, social and family history unless otherwise noted. Please see nursing chart for further informati
== END 2021-07-21 09:41 | disposition home or self-care (01) ==
PROVIDERS: Emergency Provider Nurse Practitioner; PCP Family Medicine
DX: K08.89 Other specified disorders of teeth and supporting structures (principal); Z87.891 Personal history of nicotine dependence; K50.90 Crohn's disease, unspecified, without complications; Z86.711 Personal history of pulmonary embolism; Z85.828 Personal history of other malignant neoplasm of skin; Z90.710 Acquired absence of both cervix and uterus
CPT/HCPCS: 99213; G0463

== ENCOUNTER 2022-02-01 12:23 | Emergency (ER) | payer OTHER, SELFPAY ==
--- NOTE | ~2022-02-01 | XR_ITS ---
EXAMINATION: XR toe 4th RT min 2V DATE: 02/01/2022 12:42 INDICATION: Right fourth toe injury and pain. TECHNIQUE: 3 views of right fourth toe were obtained. COMPARISON: None. FINDINGS: Bone alignment is normal. No fracture. There is mild osteoarthritis of fourth proximal inte rphalangeal joint. IMPRESSION: 1. No fracture. Reviewed, dictated and finalized at location A. IMPRESSION: 1. No fracture.
[2022-02-01 12:31] VITALS: BP 135/95; PULSE 109; RESP 16; TEMP 37.2; O2SAT 99
--- NOTE | 2022-02-01 12:31 | ED.LOWEXIN ---
HPI - Extremity Injury (Lower) General Chief Complaint: Extremity Injury, Lower Stated Complaint: right 4th digit toe pain Time Seen by Provider: 02/01/22 12:32 Source: patient and RN notes reviewed Mode of arrival: ambulatory Limitations: no limitations History of Present Illness HPI Narrative: 46-year-old female presents to the [facility] with complaints of right fourth toe pain. Patient states that [place] when she stubbed her toe. Bruising, swelling noted. Related Data Home Medications Medication Instructions Recorded Confirmed ustekinumab 130 mg/26 mL 260 mg IV USEASDIRECTD 12/09/19 02/01/22 intravenous solution (Stelara) ergocalciferol (vitamin D2) 1,250 1,250 mcg PO DAILY 07/21/21 02/01/22 mcg (50,000 unit) capsule estradiol 1 mg tablet 1 mg PO DAILY 07/21/21 02/01/22 hydroxyzine HCl 25 mg tablet 25 mg PO DAILY 07/21/21 02/01/22 acyclovir 400 mg tablet 400 mg DIRECTED 02/01/22 02/01/22 Allergies Allergy/AdvReac Type Severity Reaction Status Date / Time meperidine Allergy Unknown Rash, Verified 12/16/21 10:27 VOMITING, SYNCOPE Review of Systems Review of Systems: All systems reviewed & are unremarkable except as noted in HPI and below Constitutional: Constitutional: Reports no additional constitutional complaints, Denies chills and Denies fever(s) Eyes: Eyes: Reports no additional eye complaints ENT: Reports system reviewed and no additional complaints, except as documented Cardiovascular: Cardiovascular: Reports no additional cardiovascular complaints Respiratory: Respiratory: Reports no additional respiratory complaints Gastrointestinal: Gastrointestinal: Reports no additional gastrointestinal complaints Musculoskeletal: Musculoskeletal: Reports as per HPI (Right fourth toe pain swelling bruising) Integumentary/Breasts: Skin/Breast: Reports system reviewed and no additional complaints, except as docu Neurologic: Reports system reviewed and no additional complaints, except as documented Psychiatric: Psychiatric: Reports no additional psychiatric complaints Allergic/Immunologic: Allergic/Immunologic: Reports no additional allergic/immunologic complaints PMFSH Past Medical History Medical History Common migraine Crohn's disease of small intestine without complication Eczema History of basal cell carcinoma of skin Overweight (BMI 25.0-29.9) Pelvic pain Pulmonary embolism Uterine fibroid Surgical History Surgical History History of bilateral tubal ligation History of delivery History of endometrial ablation History of total vaginal hysterectomy (TVH) S/P total hysterectomy and BSO (bilateral salpingo-oophorectomy) Family History Family History Father Family history of chronic obstructive pulmonary disease Family history of Alzheimer's disease Family history of dementia Mother Uterine cancer Sibling High blood cholesterol Grandparent Cerebrovascular accident Grandparent Cerebrovascular accident Grandparent Lung cancer Social History Social History Smoking packs per day: 1 Smoking cigarettes per day: 20.0 Years smoked: 10 Smoking pack-years: 10.00 Smoking status: Former smoker (2 months ) Smoking end date: 03/23/21 Additional smoking assessment comments: quit 2007, restarted and quit again 03/12/21 Alcohol intake: current Drinks per week: 4 Substance use: current Substance use type: marijuana Other substance usage details: Medical Marijuana Last use: FEW WEEKS AGO Gender identity (if verbalized by the patient): Female Spiritual care concerns: No Comments At the time of my signature, I reviewed and agree with
[2022-02-01 12:32] VITALS: BP 135/95; PULSE 109; RESP 16; TEMP 37.2; O2SAT 99
== END 2022-02-01 13:12 | disposition home or self-care (01) ==
PROVIDERS: Emergency Provider Nurse Practitioner; PCP Family Medicine
DX: S90.121A Contusion of right lesser toe(s) without damage to nail, initial encounter (principal); X58.XXXA Exposure to other specified factors, initial encounter; K50.90 Crohn's disease, unspecified, without complications; Z86.711 Personal history of pulmonary embolism; Z85.828 Personal history of other malignant neoplasm of skin; Z87.891 Personal history of nicotine dependence
CPT/HCPCS: 73660; 99213; G0463

== ENCOUNTER 2022-03-11 08:37 | Emergency (ER) | payer OTHER, SELFPAY ==
[2022-03-11 08:47] VITALS: BP 114/70; PULSE 112; RESP 16; TEMP 36.6; O2SAT 100
--- NOTE | 2022-03-11 09:01 | ED.WOUNDLAC ---
HPI - Wound/Laceration General Chief Complaint: Wound/Laceration Stated Complaint: lac head injury Time Seen by Provider: 03/11/22 09:01 Source: patient and RN notes reviewed Mode of arrival: ambulatory Limitations: no limitations History of Present Illness HPI narrative: 47-year-old female presented for complaint of head laceration after syncope and fall last night. She states she woke in the night looking for water, walked downstairs, bent over to lease picker the water, and that is all she recalls, stating she passed out, struck her head on tile floor. When she woke she noted blood to scalp. Unsure length of LOC. States she applied ice to the scalp and went back to sleep. Currently only reports pain to the site of laceration. Denies dizziness, neck pain, nausea, vomiting, vision changes, confusion, numbness/tingling, or unsteady gait. Endorses history of syncopal episodes. Started new med triptyline 2 days ago. Not taking blood thinners. Related Data Home Medications Medication Instructions Recorded Confirmed ustekinumab 130 mg/26 mL 260 mg IV USEASDIRECTD 12/09/19 03/11/22 intravenous solution (Stelara) ergocalciferol (vitamin D2) 1,250 1,250 mcg PO DAILY 07/21/21 03/11/22 mcg (50,000 unit) capsule estradiol 1 mg tablet 1 mg PO DAILY 07/21/21 03/11/22 hydroxyzine HCl 25 mg tablet 25 mg PO DAILY 07/21/21 03/11/22 baclofen 5 mg tablet 5 mg PO DAILY 03/02/22 03/11/22 lorazepam 0.5 mg tablet 0.5 mg PO DAILY PRN Anxiety 03/02/22 03/11/22 ustekinumab 90 mg/mL subcutaneous 90 mg subcut DIRECTED 03/11/22 03/11/22 syringe (Stelara) Allergies Allergy/AdvReac Type Severity Reaction Status Date / Time meperidine Allergy Unknown Rash, Verified 03/11/22 09:09 VOMITING, SYNCOPE Review of Systems Review of Systems: CONSTITUTIONAL: Denies body aches, fever, chills, or sweats. EYES: Denies visual changes, photophobia ENT: Denies rhinorrhea, congestion, sore throat, or otalgia. CARDIOVASCULAR: Denies chest pain, palpitations, or edema. RESPIRATORY: Denies cough or dyspnea. GASTROINTESTINAL: Denies abdominal pain, nausea, vomiting, or diarrhea. GENITOURINARY: Denies dysuria or hematuria. SKIN: Reports head wound MUSCULOSKELETAL: Denies back pain, joint pain, or myalgia. NEUROLOGIC: denies headache, denies numbness, tingling, weakness, or dizziness All systems reviewed & are unremarkable except as noted in HPI and below PMFSH Past Medical History Medical History Common migraine Crohn's disease of small intestine without complication Eczema History of basal cell carcinoma of skin Overweight (BMI 25.0-29.9) Pelvic pain Pulmonary embolism Uterine fibroid Surgical History Surgical History History of bilateral tubal ligation History of delivery History of endometrial ablation History of total vaginal hysterectomy (TVH) S/P total hysterectomy and BSO (bilateral salpingo-oophorectomy) Family History Family History Father Family history of chronic obstructive pulmonary disease Family history of Alzheimer's disease Family history of dementia Mother Uterine cancer Sibling High blood cholesterol Grandparent Cerebrovascular accident Grandparent Cerebrovascular accident Grandparent Lung cancer Social History Social History Smoking packs per day: 1 Smoking cigarettes per day: 20.0 Years smoked: 10 Smoking pack-years: 10.00 Smoking status: Former smoker (2 months ) Smoking end date: 03/23/21 Additional smoking assessment comments: quit 2007, restarted and quit again 03/12/21 Alcohol intake: current Drinks per week: 4 Substance use: current Substance use type: marijuana Other substance usage details: Grace Limon
== END 2022-03-11 10:04 | disposition home or self-care (01) ==
PROVIDERS: Emergency Provider Nurse Practitioner Family; PCP Family Medicine
DX: S01.01XA Laceration without foreign body of scalp, initial encounter (principal); W19.XXXA Unspecified fall, initial encounter; Z87.891 Personal history of nicotine dependence; K50.90 Crohn's disease, unspecified, without complications; Z86.711 Personal history of pulmonary embolism; Z85.828 Personal history of other malignant neoplasm of skin
CPT/HCPCS: 12001; 99212; A9270; G0463

== ENCOUNTER → 2022-08-24 12:28 | Outpatient (CLI) | payer OTHER, SELFPAY ==
--- NOTE | ~2022-08-24 | MM_ITS ---
EXAMINATION: MM screening [facility] BI w pb HISTORY: Screening TECHNIQUE: Craniocaudal and mediolateral oblique 3-D tomosynthesis images were obtained and synthetic 2-D images were generated. CAD analysis was submitted and interpreted. COMPARISON: Comparison to multiple prior studies sequentially, with oldest reviewed study dated 04/24. BREAST PARENCHYMAL COMPOSITION: Breast composed of scattered areas of fibroglandular density FINDINGS: There is no evidence of suspicious mass, calcification, or architectural distortion to sugg est malignancy in either breast. There has been no suspicious interval change. IMPRESSION: 1. No mammographic evidence of malignancy. 2. Recommend routine screening mammography in one year. BI-RADS Category 1: Negative Reviewed, dictated and finalized at location A. O [employer]ODUCTION SPECIALIST
== END ==
PROVIDERS: PCP Family Medicine; Visit Provider Obstetrics & Gynecology
DX: Z12.31 Encounter for screening mammogram for malignant neoplasm of breast (principal)
CPT/HCPCS: 77063; 77067

== ENCOUNTER → 2023-06-21 09:40 | Outpatient (CLI) | payer OTHER, SELFPAY ==
--- NOTE | ~2023-06-21 | MR_ITS ---
MRI of the left knee Clinical history: Pain Technique: Coronal proton density and proton density-weighted images, sagittal proton-density and T2 fat-sat images, and axial proton-density fat-saturated images were acquired. Findings: Anterior and posterior cruciate ligaments are intact. Medial collateral ligament and the la teral collateral ligament complex are intact. Popliteus tendon is intact. Medial and lateral menisci are intact, without evidence of tear. There is mild chondral thinning of the medial femoral condyle. There is minimal chondral malacia travis lla. There is focal mild to moderate chondral lesion at the inferior aspect of the central femoral tr ochlea. Bone marrow signals are unremarkable. Extensor mechanism is intact. No significant joint effusion or Leary's cyst. Impression: Mild chondromalacia in the medial and patellofemoral compartments, as detailed above. No ligamentous injury or meniscal tear seen. Reviewed, dictated and finalized at [facility]. 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 No ligamentous injury or meniscal tear seen.
== END ==
PROVIDERS: PCP Family Medicine; Visit Provider Nurse Practitioner Family
DX: S89.92XA Unspecified injury of left lower leg, initial encounter (principal); X58.XXXA Exposure to other specified factors, initial encounter
CPT/HCPCS: 73721

== ENCOUNTER → 2023-09-19 10:19 | Outpatient (CLI) | payer OTHER, SELFPAY ==
--- NOTE | ~2023-09-19 | MM_ITS ---
EXAMINATION: MM screening nathan BI w pb HISTORY: Screening TECHNIQUE: Craniocaudal and mediolateral oblique 3-D tomosynthesis images were obtained and synthetic 2-D images were generated. CAD analysis was submitted and interpreted. COMPARISON: Comparison to multiple prior studies sequentially, with oldest reviewed study dated 04/24. BREAST PARENCHYMAL COMPOSITION: Not dense: There are scattered areas of fibroglandular density. FINDINGS: There is no evidence of suspicious mass, calcification, or architectural distortion to sugg est malignancy in either breast. There has been no suspicious interval change. IMPRESSION: 1. No mammographic evidence of malignancy. 2. Recommend routine screening mammography in one year. BI-RADS Category 1: Negative Reviewed, dictated and finalized at location A. TEGIC ANALYST
== END ==
PROVIDERS: PCP Obstetrics & Gynecology; Visit Provider Obstetrics & Gynecology
DX: Z12.31 Encounter for screening mammogram for malignant neoplasm of breast (principal)
CPT/HCPCS: 77063; 77067

== ENCOUNTER 2023-11-16 09:28 | Emergency (ER) | payer OTHER, SELFPAY ==
--- NOTE | ~2023-11-16 | CT_ITS ---
CT of the Abdomen and Pelvis: Indication: Abdominal pain, history of Crohn's disease Technique: 2.5 mm axial scans were obtained through the abdomen and pelvis following intravenous adm inistration of 100 cc of Omnipaque 350. Dose reduction technique was used on this scan by utilizing a utomated exposure control and iterative reconstruction technique. The dose-length product (DLP) was 3 83.00 mGy-cm. COMPARISON: 02/05/2020 Findings: Scans through the lung bases are unremarkable. The liver, spleen, pancreas, gallbladder, adrenals and kidneys are within normal limits. No evidence of aortic aneurysm. No lymphadenopathy. There is wall thickening and pericolonic inflammatory change of the distal sigmoid colon. No abscess or free air. No bowel obstruction. Images through the pelvis were performed. Urinary bladder unremarkable. No adnexal mass evident. No a scites. Impression: Wall thickening and prominent pericolonic inflammatory change of the distal sigmoid colon. 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 Other infectious/inflammatory colitides are not completely excluded. No abscess or free air. No bowel obstruction. Reviewed, dictated and finalized at location . Impression: Wall thickening and prominent pericolonic inflammatory change of the distal sig moid colon. Likely diagnostic considerations would include diverticulitis, or p ossibly Crohn's disease given history of Crohn's disease. Other infectious/infl ammatory colitides are not completely excluded. No abscess or free air. No viv l obstruction.
[2023-11-16 09:30] VITALS: BP 131/85; PULSE 110; RESP 18; TEMP 36.6; O2SAT 100
[2023-11-16 10:21] LABS: Basophils Percent Auto 0.2 % (0.2-1.2); Eosinophils Absolute Auto 0.2 K/mm3 (0-0.3); Eosinophils Percent Auto 1.5 % (0-4.4); Hematocrit 39.4 % (37.0-47.0); Hemoglobin 13.6 g/dL (12.0-15.0); Immature Granulocyte Absolute 0.05 K/mm3 (0.00-0.031); Immature Granulocyte Percent A 0.5 % (0-0.5); Lymphocytes Absolute Auto 1.08 K/mm3 (0.9-3.2); Mean Corpuscular HGB Conc 34.5 g/dl (32-36); Mean Corpuscular Hemoglobin 32.9 pg (26-34); Mean Corpuscular Volume 95.2 fl (80-100); Mean Platelet Volume 8.8 fl (7.4-10.4); Monocytes Absolute Auto 0.6 K/mm3 (0.1-0.6); Neutrophils Absolute Auto 7.9 K/mm3 (1.3-6.7); Neutrophils Percent Auto 80.8 % (45.5-73.1); Platelet Count Result 222 k/mm3 (150-375); Red Blood Count 4.14 M/mm3 (4.2-5.4); Red Cell Distribution Width 13.5 % (11.5-14.5); White Blood Count 9.8 K/mm3 (4.5-10.0)
[2023-11-16 10:28] LABS: Appearance Urine Clear (Clear); Bilirubin Urine Negative (Negative); Blood Urine Negative (Negative); Color Urine Yellow (Yellow); Glucose Urine UA Negative (Negative); Ketones Urine Negative (Negative); Leukocyte Esterase Ur Negative LEU/UL (Negative); Nitrate Urine Negative (Negative); Protein Urine Negative (Negative); Specific Grav Ur 1.007 (1.001-1.035); pH Urine 7.5 (5.0-9.0)
[2023-11-16 10:32] LABS: Alanine Aminotransferase 15 U/L (6-35); Albumin Level 4.5 g/dL (3.5-5.1); Alkaline Phosphatase 96 U/L (38-126); Anion Gap 6 mmol/L (4-12); Aspartate Amino Transferase 17 U/L (14-36); Bilirubin,Total 1.1 mg/dL (0.2-1.3); Blood Urea Nitrogen 10 mg/dL (7-17); Calcium 9.4 mg/dL (8.4-10.2); Carbon Dioxide 25 mmol/L (22-30); Chloride 104 mmol/L (98-107); Estimated CRCL calculation 103 ml/min; Estimated Glomerular Filt Rate > 60; Glucose 94 mg/dL (65-110); Lipase 16 U/L (23-300); Potassium 3.7 mmol/L (3.4-5.0); Sodium 135 mmol/L (137-145)
[2023-11-16 10:45] LABS: Add Urine Microscopic? NO
--- NOTE | 2023-11-16 11:30 | ED.GENADULT ---
HPI - General Adult General Chief complaint: Abdominal Pain Stated complaint: sent by PCP for abdominal pain Time Seen by Provider: 11/16/23 10:15 Source: patient Mode of arrival: ambulatory Limitations: no limitations History of Present Illness HPI narrative: This is a 48-year-old female who presents to the ED with chief complaint of abdominal pain for the past 4 days. Reports that pain worsened today. She was seen by her PCP this morning referred her over for further evaluation. Patient reports history of Crohn's disease this is not feel the same. Denies any diarrhea or rectal bleeding. Endorses nausea but no vomiting. States the pain is primarily in the left lower quadrant but does radiate around the abdomen. Denies urinary symptoms, fevers, chills, chest pain, shortness of breath, cough. Related Data Home Medications Medication Instructions Recorded Confirmed ustekinumab 90 mg/mL subcutaneous 90 mg subcut DIRECTED 03/11/22 09/27/23 syringe (Stelara) estradiol 1 mg tablet 2 mg PO DAILY 09/14/22 09/27/23 baclofen 10 mg tablet mg PO 09/27/23 09/27/23 gabapentin 300 mg capsule mg PO 09/27/23 09/27/23 Allergies Allergy/AdvReac Type Severity Reaction Status Date / Time meperidine Allergy Unknown Rash, Verified 11/16/23 09:28 VOMITING, SYNCOPE Review of Systems Review of Systems: All systems as dictated in [facility] Past Medical History Medical History Common migraine Crohn's disease of small intestine without complication Eczema History of basal cell carcinoma of skin Overweight (BMI 25.0-29.9) Pelvic pain Pulmonary embolism Uterine fibroid Surgical History Surgical History History of bilateral tubal ligation History of delivery History of endometrial ablation History of total vaginal hysterectomy (TVH) S/P total hysterectomy and BSO (bilateral salpingo-oophorectomy) Family History Family History Father Family history of chronic obstructive pulmonary disease Family history of Alzheimer's disease Family history of dementia Mother Uterine cancer Sibling High blood cholesterol Grandparent Cerebrovascular accident Grandparent Cerebrovascular accident Grandparent Lung cancer Social History Social History Social History: Caffeine- coffee/soda Smoking packs per day: 1 Smoking cigarettes per day: 20.0 Years smoked: 10 Smoking pack-years: 10.00 Smoking status: Former smoker Smoking end date: 03/23/21 Additional smoking assessment comments: quit 2007, restarted and quit again 03/12/21 Alcohol intake: current Drinks per week: 4 Substance use: current Substance use type: marijuana Other substance usage details: Medical Marijuana Last use: FEW WEEKS AGO Lack of Transportation: No Lack of Food: Never True Current Housing: I Have Housing Concerned About Future Housing: No Difficulty Paying Gas/Electric Bills: No Difficulty Paying for Meds: No Currently Unemployed: No Education: Master's Degree or Higher Gender identity (if verbalized by the patient): Female Spiritual care concerns: No Exam Narrative: GENERAL: Well-appearing, well-nourished, and in no acute distress. HEAD: Normocephalic, atraumatic. EYES: PERRLA and EOMI. ENT: Nares clear, no rhinorrhea or epistaxis. Mucous membranes moist. Oropharynx without tonsillar hypertrophy exudate or other lesions. NECK: Supple. No adenopathy or masses. CHEST: No respiratory distress. Clear to auscultation. No wheezes rales or rhonchi HEART: Regular rate and rhythm. No murmur heard. Normal peripheral pulses. ABDOMEN: Focal tenderness in the left lower quadrant. Minimal flank tenderness bilaterally. Soft
[2023-11-16] MEDS: MORPHINE SULFATE (*CRX) 4 MG/ML INJ IV PUSH (11:48)
[2023-11-16] MEDS: ONDANSETRON INJ 4 MG/2 ML VIAL IV PUSH (11:48)
[2023-11-16 12:34] VITALS: BP 129/85; PULSE 87; RESP 14; O2SAT 99
== END 2023-11-16 12:35 | disposition home or self-care (01) ==
PROVIDERS: Student in an Organized Health Care Education/Training Program; Emergency Provider Physician Assistant; PCP Family Medicine
DX: K57.32 Diverticulitis of large intestine without perforation or abscess without bleeding (principal); K50.90 Crohn's disease, unspecified, without complications; E66.3 Overweight; Z68.23 Body mass index [BMI] 23.0-23.9, adult; Z87.891 Personal history of nicotine dependence; Z90.722 Acquired absence of ovaries, bilateral; Z90.79 Acquired absence of other genital organ(s)
CPT/HCPCS: 36415; 74177; 80053; 81003; 83690; 85025; 96374; 96375; 99284; J2270; J2405; Q9967

== ENCOUNTER 2024-09-23 10:37 | Outpatient (CLI) | payer OTHER, SELFPAY | END 2024-09-23 10:38 | disposition home or self-care (01) | LOC: MICIMG 10:37 | PROVIDERS: PCP Family Medicine; Visit Provider Obstetrics & Gynecology | DX: Z12.31 Encounter for screening mammogram for malignant neoplasm of breast (principal) | CPT/HCPCS: 77063; 77067 ==